=== PATIENT | female | born 1990 | race Caucasian/White ===

== ENCOUNTER 2016-08-18 22:12 | Emergency (ER) | payer SELFPAY ==
[2016-08-19 00:03] VITALS: BP 121/78
== END 2016-08-19 00:03 | disposition home or self-care (01) ==
LOC: ED 22:12
DX: S63.8X1A Sprain of other part of right wrist and hand, initial encounter (principal); W22.8XXA Striking against or struck by other objects, initial encounter; Y93.89 Activity, other specified; Y92.89 Other specified places as the place of occurrence of the external cause; Y99.8 Other external cause status